=== PATIENT | male | born 2000 | race African-American/Black ===

== ENCOUNTER 2021-03-29 20:56 | Emergency (ER) | payer OTHER ==
[2021-03-29] MEDS ORDERED: Ketorolac 60 MG/2 ML SDV IM ONE (21:18)
--- NOTE | 2021-03-29 21:23 | EDM.PDOC ---
ED HPI GENERAL MEDICAL PROBLEM - General Chief Complaint: Lower Extremity Injury/Pain Stated Complaint: RIGHT KNEE INJURY Time Seen by Provider: 03/29/21 21:08 Source of Information: Reports: Patient, RN Notes Reviewed History Limitations: Reports: No Limitations - History of Present Illness INITIAL COMMENTS - FREE TEXT/NARRATIVE: Patient is a 21-year-old male presenting to the emergency department with complaints of right knee pain. He states that he was running while playing soccer when he experienced intense pain in his right knee. He has been able to bear weight on the extremity, however it is painful to walk or straighten the knee. He has not taken anything for pain thus far. Right Knee Pain Score (Numeric/FACES): 8 - Related Data Allergies Allergy/AdvReac Type Severity Reaction Status Date / Time No Known Allergies Allergy Verified 03/29/21 21:07 Home Meds: Home Meds . [No Known Home Meds] 03/29/21 [History] Past Medical History HEENT History: Reports: None Cardiovascular History: Reports: None Respiratory History: Reports: None Gastrointestinal History: Reports: None Genitourinary History: Reports: None Musculoskeletal History: Reports: None Neurological History: Reports: None Psychiatric History: Reports: None Endocrine/Metabolic History: Reports: None Hematologic History: Reports: None Immunologic History: Reports: None Oncologic (Cancer) History: Reports: None Dermatologic History: Reports: None - Infectious Disease History Infectious Disease History: Reports: None - Past Surgical History Head Surgeries/Procedures: Reports: None HEENT Surgical History: Reports: None Musculoskeletal Surgical History: Reports: None Social & Family History - Family History Family Medical History: No Pertinent Family History - Tobacco Use Tobacco Use Status *Q: Never Tobacco User - Caffeine Use Caffeine Use: Reports: Energy Drinks - Recreational Drug Use Recreational Drug Use: No Review of Systems - Review of Systems Review Of Systems: Comprehensive ROS is negative, except as noted in HPI. ED EXAM, GENERAL - Physical Exam Exam: See Below General Appearance: Alert, WD/WN, No Apparent Distress Respiratory/Chest: No Respiratory Distress, Lungs Clear, Normal Breath Sounds, No Accessory Muscle Use, Chest Non-Tender Cardiovascular: Normal Peripheral Pulses, Regular Rate, Rhythm, No Edema, No Gallop, No JVD, No Murmur, No Rub Extremities: Other (No tenderness to palpation, ecchymosis, or swelling. Complains of discomfort with straightening the leg.) Neurological: Alert, Oriented, CN II-XII Intact, Normal Cognition, Normal Gait, Normal Reflexes, No Motor/Sensory Deficits Psychiatric: Normal Affect, Normal Mood Skin Exam: Warm, Dry, Intact, Normal Color, No Rash Course - Vital Signs Last Recorded V/S: Last Vital Signs Temp 97.7 F 03/29/21 21:09 Pulse 100 03/29/21 21:09 Resp 18 03/29/21 21:09 BP 143/85 H 03/29/21 21:09 Pulse Ox 98 03/29/21 21:09 - Orders/Labs/Meds Orders: Active Orders 24 hr Category Date Time Status Knee Min 4V Rt [CR] Stat Exams 03/29/21 21:17 Taken DME for Discharge [COMM] Routine Oth 03/29/21 22:01 Ordered Meds: Medications Discontinued Medications Generic Name Dose Route Start Last Admin Trade Name Vibha PRN Reason Stop Dose Admin Ketorolac Tromethamine 60 mg 03/29/21 21:18 03/29/21 21:25 Ketorolac 60 Mg/2 Ml Sdv IM 03/29/21 21:19 60 mg ONETIME ONE Administration - Re-Assessments/Exams Free Text/Narrative Re-Assessment/Exam: 03/29/21 22:05 X-ray of the right knee shows no bony abnormalities. This was reviewed by myself and Dr. Rubalcava. Findings are suspicious for sprain of the right knee. Patient will be placed in a knee immobilizer to stabilize the joint. I will provide him with crutches. If he still has discomfort after 1 week, recommend Ortho follow-up with orthopedics. Discharge instructions as documented. Departure - Departure Time of Disposition: 22:10 Disposition: Home, Self-Care 01 Condition: Good Clinical Impression: Sprain of knee - Discharge Information *PRESCRIPTION DRUG MONITORING PROGRAM REVIEWED*: No *COPY OF PRESCRIPTION DRUG MONITORING REPORT IN PATIENT AZAEL: No Instructions: Knee Sprain, Adult, [id number] Referrals: Nuno Mcallister MD [Physician] - Forms: ED Department Discharge Additional Instructions: You were seen in the emergency department today for pain to your right knee that she injured while playing soccer. X-rays are completed and showed no bony abnormalities. You likely sprained your knee. You have been provided a knee immobilizer to stabilize the joint. Both been provided with crutches. Recommend nonweightbearing for the next day or 2. As the discomfort improves, you may begin to walk on the leg. Ice and elevate the extremity when at rest. You may use Tylenol or ibuprofen as needed for discomfort. If you are still having significant discomfort by the end of the week, recommend follow-up with orthopedist, Dr. Mcallister. Return to ER as needed. Sepsis Event Note (ED) - Evaluation Sepsis Screening Result: No Definite Risk - Focused Exam Vital Signs: Vital Signs Temp Pulse Resp BP Pulse Ox 03/29/21 21:09 97.7 F 100 18 143/85 H 98 - My Orders Last 24 Hours: My Active Orders 03/29/21 21:17 Knee Min 4V Rt [CR] Stat 03/29/21 22:01 DME for Discharge [COMM] Routine - Assessment/Plan Last 24 Hours: My Active Orders 03/29/21 21:17 Knee Min 4V Rt [CR] Stat 03/29/21 22:01 DME for Discharge [COMM] Routine
--- NOTE | 2021-03-30 18:19 | CR ---
Right knee: 4 views centered to the right knee were obtained. Comparison: No prior knee exam is available. No joint effusion is seen. Medial and lateral joint compartments are maintained in height. No acute fracture, dislocation or other bony abnormality is appreciated. Impression: 1. No abnormality is appreciated on 4 view right knee exam. Diagnostic code #1
== END 2021-03-29 22:20 | disposition home or self-care (01) ==
LOC: JD.ED 20:56
DX: S83.91XA Sprain of unspecified site of right knee, initial encounter (principal); Y93.66 Activity, soccer; W18.30XA Fall on same level, unspecified, initial encounter
CPT/HCPCS: 73564; 99283; J1885; 96372

== ENCOUNTER 2021-05-22 08:00 | Day surgery (SDC) | payer OTHER ==
[~2021-05-22 08:00] MED LIST: Lactated Ringers 1,000 ML IV SCH; Lidocaine 1% 4 ML ONE; Lidocaine 1%/Sod Bicarbonate in NS 8.4% 1 ML Syringe IDERM PRN; Midazolam 1 MG/ML 2 ML SDV ONE; Ondansetron 4 MG/2 ML SDV ONE; Propofol 200 MG/20 ML SDV ONE; Sodium Chloride 0.9% 10 ML Syringe FLUSH PRN; fentaNYL 250 MCG/5 ML SDV ONE
--- NOTE | 2021-05-22 08:30 | PCM.PREANE ---
Preanesthetic Assessment - Procedure Proposed Procedure: right knee video arthrosocopy - Anesthesia/Transfusion/Family Hx Anesthesia History: No Prior Anesthesia Family History of Anesthesia Reaction: No Transfusion History: No Prior Transfusion(s) - Review of Systems General: No Symptoms Pulmonary: No Symptoms Cardiovascular: No Symptoms Gastrointestinal: No Symptoms Neurological: No Symptoms Other: Reports: None - Physical Assessment NPO Status Date: 05/21/21 NPO Status Time: 22:00 Vital Signs: 94 100% 98.1 16 141/89 Height: 5 ft 8 in Weight: 68 kg ASA Class: 1 Mental Status: Alert & Oriented x3 Airway Class: Mallampati = 1 Dentition: Reports: Normal Dentition Thyro-Mental Finger Breadths: 3 Mouth Opening Finger Breadths: 3 ROM/Head Extension: Full Lungs: Clear to Auscultation, Normal Respiratory Effort Cardiovascular: Regular Rate, Regular Rhythm - Allergies Allergies/Adverse Reactions: Allergies Allergy/AdvReac Type Severity Reaction Status Date / Time No Known Allergies Allergy Verified 05/21/21 16:18 - Blood Blood Available: No - Acknowledgements Anesthesia Type Planned: General Anesthesia Pt an Appropriate Candidate for the Planned Anesthesia: Yes Alternatives and Risks of Anesthesia Discussed w Pt/Guardian: Yes Pt/Guardian Understands and Agrees with Anesthesia Plan: Yes PreAnesthesia Questionnaire - Past Health History Medical/Surgical History: Denies Medical/Surgical History HEENT History: Reports: None Cardiovascular History: Reports: None Respiratory History: Reports: None Gastrointestinal History: Reports: None Genitourinary History: Reports: None Musculoskeletal History: Reports: None Neurological History: Reports: None Psychiatric History: Reports: None Endocrine/Metabolic History: Reports: None Hematologic History: Reports: None Immunologic History: Reports: None Oncologic (Cancer) History: Reports: None Dermatologic History: Reports: None - Infectious Disease History Infectious Disease History: Reports: None - Past Surgical History Head Surgeries/Procedures: Reports: None HEENT Surgical History: Reports: None Musculoskeletal Surgical History: Reports: None - SUBSTANCE USE Tobacco Use Status *Q: Never Tobacco User Tobacco Use Within Last Twelve Months: No Second Hand Smoke Exposure: No Days Per Week of Alcohol Use: 0 Recreational Drug Use History: No - HOME MEDS Home Medications: Home Meds Aspirin [Aspirin EC] 325 mg PO BID #84 tab 05/21/21 [Rx] Hydrocodone/Acetaminophen [HYDROcodone-Acetaminophen 5-325 MG] 1 - 2 each PO Q6H PRN #8 tablet 05/21/21 [Rx] - CURRENT (IN HOUSE) MEDS Current Meds: Current Medications Lactated Ringer's (Ringers, Lactated) 1,000 mls @ 125 mls/hr IV ASDIRECTED JAIRO Stop: 05/22/21 23:00 Lidocaine/Sodium Bicarbonate (Lidocaine 1%/Sod Bicarbonate In Ns 8.4% 1 Ml Syringe) 0.25 ml IDERM ONETIME PRN PRN Reason: Prior to IV Start Stop: 05/22/21 18:00 Sodium Chloride (Sodium Chloride 0.9% 10 Ml Syringe) 10 ml FLUSH ASDIRECTED PRN PRN Reason: Keep Vein Open Stop: 05/22/21 18:00 Discontinued Medications Bupivacaine HCl (Bupivacaine 0.25% 10 Ml Sdv) Confirm Administered Dose 10 ml .ROUTE .STK-MED ONE Stop: 05/22/21 08:15 Fentanyl (Fentanyl 250 Mcg/5 Ml Sdv) Confirm Administered Dose 250 mcg .ROUTE .STK-MED ONE Stop: 05/22/21 07:24 Lidocaine HCl (Xylocaine-Mpf 1%) Confirm Administered Dose 4 mls @ as directed .ROUTE .STK-MED ONE Stop: 05/22/21 07:24 Midazolam HCl (Midazolam 1 Mg/Ml 2 Ml Sdv) Confirm Administered Dose 2 mg .ROUTE .STK-MED ONE Stop: 05/22/21 07:24 Ondansetron HCl (Ondansetron 4 Mg/2 Ml Sdv) Confirm Administered Dose 4 mg .ROUTE .STK-MED ONE Stop: 05/22/21 07:24 Propofol (Propofol 200 Mg/20 Ml Sdv) Confirm Administered Dose 200 mg .ROUTE .STK-MED ONE Stop: 05/22/21 07:24
[2021-05-22] MEDS ORDERED: ceFAZolin 1 GM Vial ONE (09:24)
[2021-05-22] MEDS: Bupivacaine 0.25% 10 ML SDV ONE ×2 (09:43→11:00)
[2021-05-22] MEDS ORDERED: EPINEPHrine 1 MG/ML 30 ML MDV IRR SCH (10:00)
[2021-05-22] MEDS ORDERED: Ondansetron 4 MG/2 ML SDV IVPUSH PRN (10:38)
[2021-05-22] MEDS ORDERED: fentaNYL 100 MCG/2 ML SDV IVPUSH PRN (10:38)
[2021-05-22] MEDS ORDERED: HYDROmorphone 0.5 MG/0.5 ML Syringe IVPUSH PRN (10:38)
[2021-05-22] MEDS ORDERED: Lactated Ringers 1,000 ML ONE (10:55)
[2021-05-22] MEDS ORDERED: Ketorolac 30 MG/ML SDV ONE (11:01)
--- NOTE | 2021-05-22 11:40 | PCM.POSTAN ---
POST ANESTHESIA ASSESSMENT - MENTAL STATUS Mental Status: Alert, Oriented - VITAL SIGNS Vital Signs: Last Vital Signs Temp 98.1 F 05/22/21 08:00 Pulse 94 05/22/21 08:00 Resp 16 05/22/21 08:00 BP 143/112 H 05/22/21 08:00 Pulse Ox 100 05/22/21 08:00 1133 120/60 97.1 11 90 100% - RESPIRATORY Respiratory Status: Respiratory Rate WNL, Airway Patent, O2 Saturation Stable, Supplemental Oxygen - CARDIOVASCULAR CV Status: Pulse Rate WNL, Blood Pressure Stable - GASTROINTESTINAL GI Status: No Symptoms - PAIN Pain Score: 0 - POST OP HYDRATION Hydration Status: Adequate & Stable
--- NOTE | 2021-05-22 12:56 | PCM48HPAN ---
Post Anesthesia Note - EVALUATION WITHIN 48HRS OF ANESTHETIC Vital Signs in Normal Range: Yes Patient Participated in Evaluation: Yes Respiratory Function Stable: Yes Airway Patent: Yes Cardiovascular Function Stable: Yes Hydration Status Stable: Yes Pain Control Satisfactory: Yes Nausea and Vomiting Control Satisfactory: Yes Mental Status Recovered: Yes Vital Signs: Last Vital Signs Temp 97.4 F 05/22/21 12:32 Pulse 74 05/22/21 12:32 Resp 11 L 05/22/21 12:32 BP 143/90 H 05/22/21 12:32 Pulse Ox 100 05/22/21 12:32
--- NOTE | 2021-05-27 10:06 | PCM.OPNOTE ---
- General Post-Op/Procedure Note Date of Surgery/Procedure: 05/22/21 Operative Procedure(s): right knee video arthroscopy with partial lateral meniscectomy Pre Op Diagnosis: right knee lateral meniscus tear with ACL deficiency Post-Op Diagnosis: Same Anesthesia Technique: General LMA, Local Primary Surgeon: Nuno Mcallister Anesthesia Provider: Albaro Christianson Rollway Man: Lidia Perez in mLs: 5 Complications: None Condition: Good
--- NOTE | 2021-06-05 09:12 | OR ---
DATE OF OPERATION: 05/22/2021 SURGEON: Nuno Mcallister MD OPERATION PERFORMED: Right knee video arthroscopy with partial lateral meniscectomy. PREOPERATIVE DIAGNOSIS: Right knee lateral meniscus tear with anterior cruciate ligament deficiency. POSTOPERATIVE DIAGNOSIS: Right knee lateral meniscus tear with anterior cruciate ligament deficiency. ANESTHESIA: General LMA with local. ANESTHESIA PROVIDER: Albaro Christianson CRNA AUTO BODY REPAIRER: Lidia Perez PA-C. ESTIMATED BLOOD LOSS: Less than 5 mL. COMPLICATIONS: None. CONDITION: Stable. DESCRIPTION OF PROCEDURE: The patient was identified in the preoperative holding area. Proper site was marked and identified by the surgeon. The patient was taken back to the operative theater, where after adequate anesthesia, the patient's left lower extremity was placed in a well leg lopez. Right lower extremity had a nonsterile tourniquet applied and then was placed in a C-clamp lopez. Foot of the bed was then lowered. Right lower extremity was then sterilely prepped and draped in the usual sterile fashion. OR time-out was performed. The patient received 2 g IV Ancef. Right lower extremity was exsanguinated. Tourniquet was insufflated to 250 mmHg. Standard anterior lateral portal incision was made. Scope trocar was introduced to the knee. The patient had no patellofemoral chondromalacia noted. Attention was turned to the medial compartment. With the use of a spinal needle, anteromedial portal was created. Medial meniscus was intact. There was no chondromalacia of the medial compartment. ACL was found to be torn off the femoral attachment and scarred into the notch. Lateral meniscus showed a radial as well as bucket-handle tear of the anterior portion of the medial meniscus that was irreparable. At this time, a partial lateral meniscectomy of the anterior 30% to 40% of the lateral meniscus was undertaken back to a stable rim. At this time, excess saline was drained from the knee. 3- 0 nylon suture was used for closure of the skin. The patient had a sterile soft dressing applied and was sent to the PACU in stable condition. MMODAL /[id number]
== END 2021-05-22 13:38 | disposition home or self-care (01) ==
LOC: JD.SDS 08:00
PROVIDERS: ATTEND Orthopaedic Surgery
DX: S83.251A Bucket-handle tear of lateral meniscus, current injury, right knee, initial encounter (principal); M23.611 Other spontaneous disruption of anterior cruciate ligament of right knee; X58.XXXA Exposure to other specified factors, initial encounter
CPT/HCPCS: 29881; J0171; J0690; J1885; J2250; J2405; J2704; J3010; J3490; J7120; 01400

== ENCOUNTER 2023-03-07 20:40 | Emergency (ER) | payer OTHER ==
[2023-03-07] MEDS ORDERED: Metoclopramide 10 MG/2 ML SDV IM ONE (20:57)
[2023-03-07] MEDS ORDERED: diphenhydrAMINE 50 MG/ML SDV IM ONE (20:57)
[2023-03-07] MEDS ORDERED: Ketorolac 30 MG/ML SDV IM ONE (20:57)
== END 2023-03-07 22:19 | disposition home or self-care (01) ==
LOC: JD.ED 20:40
DX: R51.9 Headache, unspecified (principal)
CPT/HCPCS: 96372; 99283; J1200; J1885; J2765